=== PATIENT | male | born 1955 | race Caucasian/White ===

== ENCOUNTER 2019-09-28 10:55 | Day surgery (SDC) | payer OTHER ==
[~2019-09-28 10:55] MED LIST: CEFAZOLIN SODIUM IN 0.9 % NACL 2 GM/100 ML BAG IV ONE
[2019-09-28] MEDS ORDERED: DEXAMETHASONE 4 MG/ML VIAL IVP ONE (10:56)
[2019-09-28] MEDS ORDERED: KETOROLAC 30 MG/ML VIAL IVP ONE (10:56)
[2019-09-28] MEDS ORDERED: PROPOFOL 200 MG/20 ML VIAL IVP ONE (10:56)
[2019-09-28] MEDS ORDERED: fentaNYL 100 MCG/2 ML VIAL IVP ONE (10:56)
[2019-09-28] MEDS ORDERED: MIDAZOLAM 2 MG/2 ML VIAL IVP ONE (10:56)
[2019-09-28] MEDS ORDERED: LIDOCAINE MPF 1%-EPI 1:200000 30 ML VIAL ONE (11:03)
[2019-09-28] MEDS ORDERED: BUPIVACAINE 0.5% PF 30 ML VIAL ONE (11:03)
[2019-09-28] MEDS ORDERED: LACTATED RINGERS 1,000 ML IV ONE ×2 (11:22→12:41)
[2019-09-28] MEDS ORDERED: ceFAZolin 1 GM VIAL ONE (11:32)
--- NOTE | 2019-09-28 11:35 | ANESTHESIA ---
Pre-Anesthesia VS, & Labs - Diagnosis right inguinal hernia - Procedure right inguinal hernia repair Vital Signs: Temp Pulse Resp BP Pulse Ox 36.6 C 88 18 144/94 H 99 09/28/19 11:15 09/28/19 11:15 09/28/19 11:15 09/28/19 11:15 09/28/19 11:15 Height 5 ft 11 in Weight (kg) 83.2 kg Home Medications and Allergies Home Medications: Ambulatory Orders Alprazolam [Xanax] 0.25 mg PO ONCE PRN 09/16/19 Alprazolam [Xanax] 0.25 mg PO ONCE PRN 09/16/19 Allergies/Adverse Reactions: Allergies Allergy/AdvReac Type Severity Reaction Status Date / Time No Known Drug Allergies Allergy Verified 09/16/19 16:10 Anes History & Medical History - Anesthetic History Anesthesia Complications: reports: No previous complications Family history of Anesthesia Complications: Denies Family history of Malignant Hyperthermia: Denies - Medical History Cardiovascular: reports: High cholesterol Pulmonary: reports: None Gastrointestinal: reports: GERD, Hiatal hernia Urinary: reports: Incontinence Neuro: reports: None Musculoskeletal: reports: None Endocrine/Autoimmune: reports: None Blood Disorders: reports: None Skin: reports: None, Other Smoking Status: Current every day smoker (IPPD) Psychosocial: reports: Anxiety - Surgical History General: Colonoscopy, Other Eyes Ears Nose Throat (EENT): Other Cardiothoracic: AAA (patient reports that he had open AA repair done at "[facility]" in 1999 denies having any problems), Other [facility] Results - EKG Results EKG Comparison: Normal EKG Exam General: Alert, Oriented x3, Cooperative, No acute distress Dental: WNL Mouth Openin Fingerbreadth Neck Mobility: Normal Mallampati classification: II Thyromental Distance: 4-6 cm Respiratory: Decreased breath sounds Cardiovascular: Regular rate, Normal S1, Normal S2, No murmurs Abdomen: Normal bowel sounds, Soft, No tenderness, No hepatospenomegaly, No masses Extremities: No clubbing, No cyanosis, No edema, Normal pulses, No tenderness/swelling Neurological: Normal gait, Normal speech, Strength at 5/5 X4 ext, Normal tone, Sensation intact, Cranial nerves 3-12 NL, Reflexes 2+ Mental/Cognitive Status: Alert/Oriented X3, Normal for patient Cognitive Status: Within normal limits Plan Anesthesia Type: General Consent for Procedure(s) Verified and Reviewed: Yes Code Status: Attempt Resuscitation ASA classification: 2-Mild systemic disease Is this case an emergency?: No
[2019-09-28] MEDS ORDERED: BUPIVACAINE 0.5% PF 30 ML VIAL SUBQ ONE ×2 (12:20)
[2019-09-28] MEDS ORDERED: ceFAZolin 1 GM VIAL IR ONE (12:21)
[2019-09-28] MEDS ORDERED: LIDOCAINE 1%-EPI 1:100000 30 ML MDV SUBQ ONE ×2 (12:21)
[2019-09-28] MEDS ORDERED: ONDANSETRON 4 MG/2 ML VIAL IVP PRN (12:48)
[2019-09-28] MEDS ORDERED: IBUPROFEN 600 MG TABLET PO PRN (12:48)
[2019-09-28] MEDS ORDERED: oxyCODONE 5 MG TABLET PO PRN (12:48)
[2019-09-28] MEDS ORDERED: ACETAMINOPHEN 325 MG TABLET PO PRN (12:48)
--- NOTE | 2019-09-28 13:19 | OPERATIVE REPORT ---
Operative Report - General Procedure Date: 09/28/19 Planned Procedure: Right Inguinal Hernia Repair Pre-Op Diagnosis: Large, Incarcerated, Right Inguinal Hernia Procedure Performed: Right Inguinal Hernia Repair Post Op Diagnosis: Large, Incarcerated, Right Inguinal Hernia - Procedure Note Primary Surgeon: Kassidy Anesthesia Provider: ИВАН Griffiths Anesthesia Technique: General LMA Pathology: none Estimated Blood Loss (mL): 5 Findings: Large mass of small bowel and right colon within the hernia sack Complications: None apparent - Other Other Information/Narrative: After obtaining informed consent, the patient is brought to the operating room and placed in the supine position on the operating table. Following successful induction of general anesthesia, appropriate padding of all bony prominences, and placement of appropriate monitors, the abdomen was prepped and draped in the standard surgical fashion. A timeout was held per scope protocol. All elements of the surgical safety checklist were followed before, during, and after the procedure. We began the procedure by performing an ilioinguinal nerve block on the right. This was done by infiltrating a mixture of local anesthetic medial to the anterior superior iliac spine on the right. We continued by identifying the location in the right lower quadrant for placement of our incision and anesthetizing this region as well. An incision was created here and carried down through the skin and subcutaneous tissue. Felix's fascia was opened and the external oblique aponeurosis of the hernia sac revealed. The fibers of the external oblique aponeurosis were noted to be greatly attenuated. They were opened in the direction of their natural inclination. The hernia sac was identified. It was carefully encircled with a [place] drain. The sac itself was noted to be in the anterior medial position. Careful dissection revealed a significant mass of small bowel and colon that extended all the way to the right groin. This was carefully from the spermatic cord without opening the peritoneal cavity. The entire mass of bowel in the hernia sac was then replaced into the peritoneal cavity. What remained was a very large indirect defect. We elected to repair the defect using a large Prolene hernia system mesh implant. This was deployed after having rinsed it in Ancef containing solution. It was placed gently in the preperitoneal splayed pace being sure to straightened and flattened it so that the direct and indirect openings would both be covered. The anterior leaflet was then nicked laterally so that the spermatic cord could be easily laid on top of the mesh without obstruction. The neck was then closed with a single Prolene suture. The anterior leaflet was sewn to the Frank's ligament medially, with a single absorbable suture superiorly to the transversalis muscle, laterally it was tucked under the external oblique aponeurosis, and inferiorly it was left at the edge of the inguinal ligament. The wound was then checked for hemostasis and irrigated with Ancef containing solution. The external oblique aponeurosis was then closed with a running Vicryl suture. Scarpas fascias was closed with vicryl suture and Monocryl stitches were placed in the skin.All sponge, needle, and instrument counts were correct at the conclusion of the case. The patient was allowed awaken from a nesthesia without difficulty and taken to the post anesthesia care unit in good condition.
[2019-09-28 15:09] VITALS: BP 150/82
== END 2019-09-28 10:56 | disposition home or self-care (01) ==
LOC: SDS 10:55
PROVIDERS: ATTEND Surgery
PROC: 0YU50JZ Supplement Right Inguinal Region with Synthetic Substitute, Open Approach (ICD-10-PCS; principal; 2019-09-28 12:15)
DX: K40.30 Unilateral inguinal hernia, with obstruction, without gangrene, not specified as recurrent (principal); F17.210 Nicotine dependence, cigarettes, uncomplicated; F41.9 Anxiety disorder, unspecified
CPT/HCPCS: 49505; C1781; J0690; J7120

== ENCOUNTER 2021-08-28 10:50 | Day surgery (SDC) | payer OTHER ==
[2021-08-28] MEDS ORDERED: LACTATED RINGERS 1,000 ML IV ONE ×2 (11:14→12:50)
--- NOTE | 2021-08-28 11:54 | ANESTHESIA ---
Pre-Anesthesia VS, & Labs - Diagnosis screening - Procedure colonoscopy Vital Signs: Temp Pulse Resp BP Pulse Ox 36.3 C L 81 18 140/97 H 97 08/28/21 11:14 08/28/21 11:14 08/28/21 11:14 08/28/21 11:14 08/28/21 11:14 Height: 5 ft 11 in Weight (kg): 76 kg Body Mass Index: 23.3 BMI Classification: Healthy weight - NPO >8 hours - Lab Results Current Lab Results: Laboratory Tests 08/28/21 11:40: POC Whole Bld Glucose 94 Home Medications and Allergies Home Medications: Ambulatory Orders metFORMIN [Glucophage] 500 mg PO DAILY 08/27/21 Alprazolam [Xanax] 0.25 mg PO ONCE PRN 09/16/19 metFORMIN [Glucophage] 500 mg PO DAILY 08/27/21 Allergies/Adverse Reactions: Allergies Allergy/AdvReac Type Severity Reaction Status Date / Time No Known Drug Allergies Allergy Verified 09/16/19 16:10 Anes History & Medical History - Anesthetic History Anesthesia Complications: reports: No previous complications - Medical History Cardiovascular: reports: High cholesterol, Other Pulmonary: reports: None Gastrointestinal: reports: GERD, Hiatal hernia Urinary: reports: Incontinence Neuro: reports: None Musculoskeletal: reports: None Endocrine/Autoimmune: reports: None Blood Disorders: reports: None Skin: reports: None, Other Smoking Status: Current every day smoker (IPPD) History of Cancer?: No - Surgical History General: reports: Other Eyes Ears Nose Throat (EENT): reports: Other Cardiothoracic: reports: Other Exam General: Alert Dental: WNL Mouth Opening: Greater than 4 Fingerbreadths Neck Mobility: Normal Mallampati classification: II Respiratory: Lungs clear Cardiovascular: Regular rate Plan Anesthesia Type: Total IV Consent for Procedure(s) Verified and Reviewed: Yes Code Status: Attempt Resuscitation ASA classification: 2-Mild systemic disease Is this case an emergency?: No
[2021-08-28] MEDS ORDERED: LIDOCAINE-MPF 2% 5 ML VIAL ONE (12:13)
[2021-08-28] MEDS ORDERED: PROPOFOL 200 MG/20 ML VIAL IVP ONE ×2 (12:21→12:30)
[2021-08-28 13:12] VITALS: BP 149/90
--- NOTE | 2021-08-28 14:17 | ANESTHESIA POST OP EVALUATION ---
Anesthesia Post Eval - Post Anesthesia Eval Vitals: Last Vital Signs Temp 36.5 C 08/28/21 13:12 Pulse 70 08/28/21 13:12 Resp 17 08/28/21 13:12 BP 149/90 H 08/28/21 13:12 Pulse Ox 97 08/28/21 13:12 CV Function Including HR & BP: Stable Pain Control: Satisfactory Nausea & Vomiting: Negative Mental Status: Baseline Respiratory Status: Airway Patent Hydration Status: Satisfactory Anesthesia Complications: None
== END 2021-08-28 10:51 | disposition home or self-care (01) ==
LOC: SDS 10:50
PROVIDERS: ATTEND Surgery
DX: K57.32 Diverticulitis of large intestine without perforation or abscess without bleeding (principal); K57.30 Diverticulosis of large intestine without perforation or abscess without bleeding; K64.8 Other hemorrhoids; K64.4 Residual hemorrhoidal skin tags; R19.5 Other fecal abnormalities
CPT/HCPCS: 45378; J7120